=== PATIENT | female | born 1955 | race Caucasian/White ===

== ENCOUNTER 2021-08-08 12:53 | Outpatient (CLI) | payer MEDICARE | END 2021-08-08 12:54 | disposition home or self-care (01) | LOC: TBSIIMAG 12:53 | PROVIDERS: ATTEND Neurological Surgery | DX: M54.2 Cervicalgia (principal); M54.50 Low back pain, unspecified; M48.061 Spinal stenosis, lumbar region without neurogenic claudication; M71.38 Other bursal cyst, other site; M89.38 Hypertrophy of bone, other site; M50.31 Other cervical disc degeneration, high cervical region; M48.02 Spinal stenosis, cervical region | CPT/HCPCS: 72141; 72148 ==

== ENCOUNTER 2022-06-16 11:17 | Outpatient (CLI) | payer MEDICARE ==
[2022-06-16 12:47] LABS: Hemoglobin 13.2 g/dL (12.0-15.5); Mean Corpuscular HGB CONC 33.8 g/dL (32.0-36.0); Mean Corpuscular Hemoglobin 30.8 pg (27.0-33.0); Mean Corpuscular Volume 90.9 fl (81.6-98.3); Platelet Count 195 10x3/uL (150-450); RBC Distribution Width 11.9 % (11.5-14.5); Red Blood Cell (RBC) Count 4.29 10x6/uL (3.90-5.03); White Blood Cell (WBC) Count 5.8 10x3/uL (3.5-10.5)
[2022-06-16 12:58] LABS: Anion Gap 15 mmol/L (10-20); BUN (Urea Nitrogen) 20 mg/dL (9.8-20.1); Calc. Creatinine Clearance 0 mL/min (70-130); Calcium 9.3 mg/dL (7.8-10.44); Carbon Dioxide 27 mmol/L (23-31); Chloride 101 mmol/L (98-107); Estimated GFR 76; Glucose 96 mg/dL (80-115); Potassium 3.9 mmol/L (3.5-5.1); Sodium 139 mmol/L (136-145)
== END 2022-06-16 11:18 | disposition home or self-care (01) ==
LOC: LABBT 11:17
PROVIDERS: ATTEND Neurological Surgery
DX: Z01.818 Encounter for other preprocedural examination (principal); M48.062 Spinal stenosis, lumbar region with neurogenic claudication
CPT/HCPCS: 80048; 85027; 93005; 93010

== ENCOUNTER 2022-06-23 07:33 | Day surgery (SDC) | payer MEDICARE ==
[2022-06-19 13:50] VITALS: BMI 23.3
[2022-06-23] MEDS ORDERED: Vancomycin 1 GM VIAL ONE (09:10)
[2022-06-23] MEDS ORDERED: HYDROmorphone 0.5 MG/0.5 ML SYRINGE ONE (09:48)
[2022-06-23] MEDS ORDERED: fentaNYL PF 100 MCG/2 ML SYRINGE ONE (09:48)
[2022-06-23] MEDS ORDERED: Sodium Chloride 0.9% 100 ML ONE (09:48)
[2022-06-23] MEDS ORDERED: CEFAZOLIN 2 GM VIAL ONE (09:48)
[2022-06-23] MEDS ORDERED: Ketorolac Tromethamine 30 MG/ML VIAL ONE (10:15)
[2022-06-23] MEDS ORDERED: ePHEDrine 50 MG/ML VIAL ONE (10:15)
[2022-06-23] MEDS ORDERED: PROPOFOL 200 MG/20 ML VIAL ONE (10:15)
[2022-06-23] MEDS ORDERED: Ondansetron PF 4 MG/2 ML Vial ONE (10:15)
[2022-06-23] MEDS ORDERED: Lidocaine 1% PF 5 ML VIAL ONE (10:15)
[2022-06-23] MEDS ORDERED: Metoclopramide HCl 10 MG/2 ML VIAL ONE (10:15)
[2022-06-23] MEDS ORDERED: Rocuronium Bromide 10 MG/ML (10ML VIAL) ONE (10:15)
[2022-06-23] MEDS ORDERED: Dexamethasone 20 MG/5 ML VIAL ONE (10:15)
[2022-06-23] MEDS ORDERED: SUGAMMADEX SODIUM 200 MG/2 ML VIAL ONE ×2 (10:43→10:55)
[2022-06-23] MEDS ORDERED: FENTANYL 50 MCG/ML 1 ML VIAL ONE (11:35)
[2022-06-23] MEDS ORDERED: Morphine 2 MG/ML VIAL ONE (12:27)
[2022-06-23] MEDS ORDERED: HYDROcodone/Acetaminophen 5/325 mg Tablet ONE (12:53)
== END 2022-06-23 13:52 | disposition home or self-care (01) ==
LOC: SDC 07:33
PROVIDERS: ATTEND Neurological Surgery
PROC: 01NB0ZZ Release Lumbar Nerve, Open Approach (ICD-10-PCS; principal; 2022-06-23)
DX: M48.062 Spinal stenosis, lumbar region with neurogenic claudication (principal); G89.29 Other chronic pain; I10 Essential (primary) hypertension; E03.9 Hypothyroidism, unspecified; M19.90 Unspecified osteoarthritis, unspecified site; Z86.73 Personal history of transient ischemic attack (TIA), and cerebral infarction without residual deficits; Z79.83 Long term (current) use of bisphosphonates; Z79.890 Hormone replacement therapy; Z79.899 Other long term (current) drug therapy
CPT/HCPCS: 63047; C1713; J3010; J1100; J1170; J1885; J2272; J2405; J2704; J2765; J3370; J3490